=== PATIENT | male | born 1985 | race Caucasian/White ===

== ENCOUNTER 2022-09-08 02:48 | Emergency (ER) | payer OTHER, SELFPAY ==
--- NOTE | ~2022-09-08 | XR_ITS ---
EXAMINATION: XR ANKLE, RIGHT CLINICAL INFORMATION: Right ankle pain COMPARISON: None TECHNIQUE: AP, lateral, and mortise views of the right ankle. FINDINGS: No acute fracture or dislocation. Ankle mortise is congruent. Talar dome is intact. No joint effusion. Mild lateral ankle soft tissue swelling. XR/XR ankle RT min 3V IMPRESSION: * No acute fracture or dislocation. * Mild soft tissue swelling laterally.
[2022-09-08 03:01] VITALS: BP 119/88; PULSE 76; RESP 14; TEMP 36.6; O2SAT 98; BMI 21.2
[2022-09-08 07:23] VITALS: BP 117/82; PULSE 66; RESP 16; TEMP 36.9; O2SAT 99
--- NOTE | 2022-09-08 08:06 | ED.LOWEXIN ---
HPI - Extremity Injury (Lower) General Chief Complaint: Extremity Injury, Lower Stated Complaint: right ankle broken/sprained Time Seen by Provider: 09/08/22 07:58 Source: patient Mode of arrival: ambulatory Limitations: no limitations History of Present Illness HPI Narrative: 37-year-old male previously healthy here with right ankle pain after rolling his ankle last evening. Patient reports was running in the ankle rolled in. Since then he has pain which is worsened with weight-bearing. No weakness, numbness or tingling of the extremity. Related Data Allergies Allergy/AdvReac Type Severity Reaction Status Date / Time No Known Allergies Allergy Unverified 04/13/20 15:42 Review of Systems Review of Systems: Yes all other systems are reviewed and are negative Constitutional: Constitutional: Reports no additional constitutional complaints, Denies body ache(s), Denies chills, Denies fever(s), Denies headache(s) and Denies weakness Eyes: Eyes: Reports no additional eye complaints and Denies change in vision ENT: Reports system reviewed and no additional complaints, except as documented, Denies dizziness, Denies headache(s), Denies nasal congestion, Denies nasal discharge and Denies neck pain Cardiovascular: Cardiovascular: Reports no additional cardiovascular complaints, Denies chest pain, Denies leg edema and Denies dyspnea Respiratory: Respiratory: Reports no additional respiratory complaints, Denies cough and Denies dyspnea Gastrointestinal: Gastrointestinal: Reports no additional gastrointestinal complaints, Denies abdominal pain, Denies diarrhea, Denies nausea and Denies vomiting Genitourinary: Genitourinary: Denies urinary incontinence Musculoskeletal: Musculoskeletal: Reports no additional musculoskeletal complaints, Denies back pain, Reports arthralgias, Reports joint swelling, Denies neck pain, Denies numbness and Denies tingling Integumentary/Breasts: Skin/Breast: Reports system reviewed and no additional complaints, except as docu and Denies rash Neurologic: Reports system reviewed and no additional complaints, except as documented, Denies Abnormal speech present, Denies dizziness, Denies headache(s), Denies numbness, Denies tingling and Denies weakness PMFSH Past Medical History Attestation statement: The following information was validated with the patient. Source: old records reviewed and nursing notes reviewed Social History Social History Advance Directives: No Physical Exam Vital Signs: Vital Signs: Last Vital Signs Temp 98.4 F 09/08/22 07:23 Pulse 66 09/08/22 07:23 Resp 16 09/08/22 07:23 BP 117/82 09/08/22 07:23 Pulse Ox 99 09/08/22 07:23 O2 Del Method 09/08/22 07:23 BMI result Body Mass Index 21.2 Const: General: cooperative, healthy appearing, comfortable and no acute distress Orientation/consciousness: patient oriented x3 Limitations: no limitations HEENT: Head: Yes normal to inspection Ears: hearing grossly normal bilaterally General nose exam: Normal external nose present Face and sinus: Yes normal facial exam Mouth: Normal oral and palatal mucosa present Throat: Yes posterior oropharynx normal Eyes: General: appearance normal, both eyes and all related structures Pupils: Equal, round and reactive pupils present Neck: Neck: Yes normal visual inspection Chest: Chest palpation & inspection: normal inspection of the chest Resp: Effort & Inspection: normal respiratory effort Auscultation: clear to auscultation bilaterally Cardio: Rate: regular rate Rhythm: regular rhythm Peripheral pulses: Peripheral pulses 2+ throughout GI: Inspection: Yes normal to inspection Palpation (GI): Soft to palpation and nontender Auscultation: normal bowel sounds Back/Spine/Pelvis: Thoracic/Lumbar Spine: thoracic and lumbar spine normal to inspection Skin: General skin exam: no rashes or lesions noted Neuro: General: patient oriented x3, no focal motor deficits and normal sensation to monofilament Cranial nerves: Yes Equal, round and reactive pupils present Cognition (Neuro): normal cognition Speech: No Abnormal speech present Gait exam (Neuro): Normal gait present Motor exam (neuro): 5/5 motor strength present throughout Extrem: Other: Over the right lateral ankle there is ecchymosis and swelling as well as tenderness on exam. Patient has no tenderness over the posterior or medial ankle. No tenderness over the foot. He has full range of motion of the ankle and of the foot. No ligamental laxity. Negative Hubbard test. Distal pulses are palpated and normal. General: Yes normal to inspection Course Course Course Narrative: x-ray shows no acute fracture. Patient will be placed in air splint and given crutches for home. Likely sprain. Reviewed rice. Reviewed worrisome signs and symptoms of when to return to the emergency room. Comfortable plan for discharge home. Medical Decision Making Medical Decision Making MDM Narrative: 37-year-old male here with right ankle pain after an inversion injury which occurred yesterday x-rays ordered Differential Diagnosis Differential Diagnoses: The differential diagnosis associated with the presentation includes fracture, sprain Independent Interpretation I performed an independent interpretation of an: Plain X-Ray Interpretation: I independently reviewed the x-ray of the right ankle which shows no acute fracture Radiology Impression Discussion of test interpretation with radiology: I have reviewed the radiologist's reading. Radiologist Impression: [address] [address] XRay Report Signed Patient: London Norman MR#: [id number] : 1985 Acct:[id number] Age/Sex: 37 / M ADM Date: 09/08/22 Loc: .ED Attending Dr: Ordering Physician: Generic ED Physician Date of Service: 09/08/22 Procedure(s): XR ankle RT min 3V Accession Number(s): [id number] cc: Generic ED Physician~ EXAMINATION: XR ANKLE, RIGHT CLINICAL INFORMATION: Right ankle pain? COMPARISON: None? TECHNIQUE: AP, lateral, and mortise views of the right ankle. FINDINGS: No acute fracture or dislocation. Ankle mortise is congruent. Talar dome is intact. No joint effusion. Mild lateral ankle soft tissue swelling.? XR/XR ankle RT min 3V IMPRESSION: *? No acute fracture or dislocation. *? Mild soft tissue swelling laterally. ? Discharge Plan Discharge Clinical Impression: Ankle sprain and strain Patient Disposition: Home, Self-Care Instructions: Ankle Sprain (ED), Crutch Instructions (ED) Additional Instructions: Use the crutches and air cast for the next few days until your able to bear weight without experiencing pain Apply ice to the ankle Elevate Take Motrin as needed for pain. Follow-up with primary care doctor after 7 days for any persistent symptoms Referrals: Afia Burgess MD [Primary Care Provider] - 1 week Interventions: ED Discharge Assessment Last Done: 09/08/22 08:27 Discharge Date/Time: 09/08/22 08:27
== END 2022-09-08 08:27 | disposition home or self-care (01) ==
PROVIDERS: Emergency Provider Emergency Medicine Emergency Medical Services; PCP Internal Medicine
DX: S93.401A Sprain of unspecified ligament of right ankle, initial encounter (principal); X50.1XXA Overexertion from prolonged static or awkward postures, initial encounter; Y93.9 Activity, unspecified; Y92.9 Unspecified place or not applicable; Y99.9 Unspecified external cause status
CPT/HCPCS: 29125; 29515; 73610; 99283